=== PATIENT | female | born 1940 | race Caucasian/White ===

== ENCOUNTER 2017-03-19 15:31 | Outpatient (CLI) | payer MEDICARE, OTHER ==
--- NOTE | 2017-03-20 09:52 | Ultrasound Report ---
PELVIC ULTRASOUND: 03/19/2017 CLINICAL INDICATION: Postmenopausal bleeding. TECHNIQUE: Transabdominal pelvic ultrasound performed for global evaluation. Transvaginal pelvic ul trasound performed for detailed evaluation. Real-time scanning performed and static images obtained. FINDINGS: The uterus is anteverted, measuring 6.8 x 3.9 x 2.0 cm. The endometrial echo complex aleshia ures 3 mm. There is a 1.7 cm heterogeneous prominence of the cervix. Correlation with Pap smear is recommended. The ovaries are unremarkable, with the right measuring 1.5 x 1.1 x 1.0 cm and the left measuring 1.9 x 1.7 x 1.1 cm. No free fluid is present. IMPRESSION: HETEROGENEOUS APPEARANCE OF THE CERVIX, WITH A NODULAR 1.7 CM PROMINENCE. CORRELATION W ITH PAP SMEAR IS RECOMMENDED. NO EVIDENCE OF ENDOMETRIAL HYPERPLASIA. JOB #: [id number] EXT JOB #:[id number]
== END 2017-03-19 15:32 | disposition home or self-care (01) ==
LOC: DI 15:31
PROVIDERS: ATTEND Obstetrics & Gynecology
DX: N95.0 Postmenopausal bleeding (principal)
CPT/HCPCS: 76830; 76856

== ENCOUNTER 2017-05-19 14:00 | Outpatient (CLI) | payer MEDICARE, OTHER ==
--- NOTE | 2017-05-21 09:15 | MRI Report ---
EXAM: MRI LUMBAR SPINE WITHOUT CONTRAST EXAM DATE: 05/19/2017 02:39 PM. CLINICAL HISTORY: Right-sided sciatica for 6 weeks. COMPARISON: None. TECHNIQUE: Multiplanar, multisequence T1-weighted and fluid-sensitive sequences of the lumbar spine f rom T12 to S1 without contrast. Other: None. FINDINGS: Spinal Cord: The conus terminates at L1-L2. No signal abnormality in the visualized spinal cord. Alignment: There is an 8-degree levoscoliosis centered on L3. There is a 3-degree anterolisthesis at L3-L4. Bone Marrow: Five [id number] lumbar vertebral bodies are assumed. No gross fractures or bone les ions. No bone marrow edema. Disk Levels/Facets: T12-L1: Unremarkable. L1-L2: Unremarkable. L2-L3: There is a broad-based posterior disk bulge with mild facet joint osteoarthritis causing mild canal narrowing. The foramina are patent. L3-L4: Malalignment combines with moderate facet joint osteoarthritis and ligamentum flavum redundanc y to cause mild canal narrowing. There is minimal foraminal narrowing. L4-L5: There is disk desiccation and loss of disk height. There is a broad-based posterior disk bulge with moderate facet joint osteoarthritis and ligamentum flavum redundancy causing mild canal narrowi ng. There is mild bilateral foraminal narrowing. L5-S1: There is severe bilateral facet joint osteoarthritis. The canal is patent. There is mild bilat eral foraminal narrowing. Musculature: Normal. No edema or fatty atrophy. Other: The visualized pelvic cavity is unremarkable. IMPRESSION: 1. Moderate spondylotic change with a 3 mm anterolisthesis at L3-L4 and an 8-degree degenerative levo scoliosis. 2. Moderate to severe facet joint osteoarthritis from L3-L4 to L5-S1. 3. Mild foraminal narrowing from L3-L4 to L5-S1. Comment: The following findings are so common in adults without low back pain that while we report th eir presence, they must be interpreted with caution and in the context of the clinical situation. (Re milagros Fields et al, Spine 2001) Prevalence of findings in patients without low back pain: Disk degeneration (any evidence): 92% Disk desiccation/T2 signal loss: 83% Disk height loss: 56% Disk bulge: 64% Disk protrusion: 32% Annular tear/high intensity zone: 38% [facility] Referring Provider Line: [phone] SITE ID: [id number]
== END 2017-05-19 14:01 | disposition home or self-care (01) ==
LOC: DI 14:00
PROVIDERS: ATTEND Orthopaedic Surgery
DX: M51.36 Other intervertebral disc degeneration, lumbar region (principal); M47.896 Other spondylosis, lumbar region; M47.897 Other spondylosis, lumbosacral region; M41.86 Other forms of scoliosis, lumbar region
CPT/HCPCS: 72148